=== PATIENT | female | born 1990 | race Native Hawaiian/Other Pacific Islander ===

== ENCOUNTER 2022-06-04 11:29 | Emergency (ER) | payer OTHER ==
[2022-06-04 12:03] VITALS: BP 125/84
[2022-06-04] MEDS ORDERED: ERYTHROMYCIN OPHTH OINT 1 GM TUBE LEFTEYE STA (12:26)
--- NOTE | 2022-06-04 12:27 | ED Physician Documentation ---
PD HPI OPHTHO - Stated complaint Stated Complaint: LT EYE PX/SWELLING/BLEEDING - Chief complaint Chief Complaint: Heent - History obtained from History obtained from: Patient - Additional information Additional information: 31-year-old otherwise healthy noncontact lens wear has had 3 days of left eye swelling, irritation, and discharge especially after sleeping overnight. She also has a tender preauricular lymph node on that side. No visual deficit. PD PAST MEDICAL HISTORY - Present Medications Home Medications: Ambulatory Orders Medication Instructions Recorded Confirmed Erythromycin Base [Erythromycin 1 appful OP 5XD 7 Days #1 gm 06/04/22 Ophthalmic Ointment] - Allergies Allergies/Adverse Reactions: Allergies Allergy/AdvReac Type Severity Reaction Status Date / Time No Known Drug Allergies Allergy Verified 06/04/22 11:48 PD ED PE NORMAL - Vitals Vital signs reviewed: Yes - General General: Alert and oriented X 3, No acute distress - HEENT HEENT: PERRL, EOMI, Other (She has pretty significant conjunctivitis on the left. There is no fluorescein uptake. Micheal-Pen on that side is 17.) - Neuro Neuro: Alert and oriented X 3, oracle forms developer 2-12 intact, Normal speech Results - Vitals Vitals: Vital Signs - 24 hr 06/04/22 11:44 Temperature 36.7 C Heart Rate 68 Respiratory 16 Rate Blood Pressure 125/84 H O2 Saturation 99 Oxygen O2 Source Room air Departure - Departure Disposition: 01 Home, Self Care Clinical Impression: Conjunctivitis Qualifiers: Conjunctivitis type: acute Acute conjunctivitis type: bacterial Laterality: left Qualified Code(s): H10.32 - Unspecified acute conjunctivitis, left eye Condition: Good Record reviewed to determine appropriate education?: Yes Instructions: ED Conjunctivitis Bacterial Follow-Up: Charanjit Vick MD [Provider Admit Priv/Credential] - Prescriptions: Erythromycin Base [Erythromycin Ophthalmic Ointment] 1 appful OP 5XD 7 Days #1 gm Comments: Follow-up with the pumper gager apprentice in a few days, 2-3 if not improved, return for new or worsening symptoms.
== END 2022-06-04 12:42 | disposition home or self-care (01) ==
LOC: ED 11:29
DX: H10.32 Unspecified acute conjunctivitis, left eye (principal)
CPT/HCPCS: 99282; 99283; J3490